=== PATIENT | female | born 1995 | race American Indian/Alaskan Native ===

== ENCOUNTER 2019-03-22 04:07 | Emergency (ER) | payer MEDICAID ==
[2019-03-22 04:12] VITALS: BP 136/75
[2019-03-22 04:51] LABS: Basophils % (Auto) 0.4 % (0.0-1.8); Eosinophils # (Auto) 0.1 K/mm3 (0.0-0.4); Eosinophils % (Auto) 1.1 % (0.0-4.3); Hematocrit 38.2 % (30.3-42.9); Hemoglobin 12.7 gm/dl (10.1-14.3); Lymphocytes # (Auto) 3.6 K/mm3 (1.2-5.4); Lymphocytes % (Auto) 34.5 % (13.4-35.0); Mean Corpuscular HGB Conc 33 % (30-34); Mean Corpuscular Volume 86 fl (79-97); Platelet Count 289 K/mm3 (140-440); Red Blood Count 4.46 M/mm3 (3.65-5.03); Red Cell Distribution Width 15.8 % (13.2-15.2)
--- NOTE | 2019-03-22 08:20 | Ultrasound Report ---
PROCEDURE: US OB <= 14 WEEKS FETUS, US OB TRANSVAGINAL TECHNIQUE: Transvesical and endovaginal pelvic obstetrical sonographic imaging was performed HISTORY: vag bleeding, low hcg beta hCG 229.5, 3, para 1, moderate vaginal bleeding, LMP 02/03 COMPARISONS: None FINDINGS: Images demonstrate uterus to measure 10.6 x 4.6 x 5.6 cm. Endometrial stripe measures 17.5 mm. Within the uterus, there is a 2.5 mm cystic space presumably an empty gestational sac. No pole or yolk sac is identified. Right ovary measures 2.7 x 1.5 x 2.5 cm with a 9 x 10 mm cyst. Left ovary is not visualized. There is no free fluid. IMPRESSION: 2.5 mm cystic space in the uterus without identified pole or yolk sac. There is endometrial hyp erplasia. This finding may be reflective of a 5 week 0 day IUP with estimated due date 11/22/2019. 10 mm right ovarian cystic lesion could represent a corpus luteal cyst of . Findings may represent a very early IUP versus nonviable . Recommend short interval follow-u p beta hCG and ultrasound.. This document is electronically signed by Marisol Retana MD., Mar 22 2019 08:18:08 AM ET
--- NOTE | 2019-03-22 08:24 | Emergency Department Report ---
ED HPI - General Chief complaint: Vaginal Bleeding Stated complaint: 6WKS AND BLEEDING Time Seen by Provider: 03/22/19 07:29 Source: patient Mode of arrival: Ambulatory Limitations: No Limitations - History of Present Illness Initial comments: This is a 23-year-old female nontoxic, well nourished in appearance, no acute signs of distress presents to the ED with c/o of vaginal bleeding x1 day. Patient stated yesterday she noticed some spotting this morning x3 occasions and primarily only when she wipes after the restroom. Patient denies any abdominal or pelvic pain. Patient denies any vaginal discharge or foul odor. Patient denies any nausea, vomiting, chest pain, shortness of breathe, fever, chills, headache, stiff neck, numbness, tingling. Patient denies any urinary symptoms. Patient denies any allergies or PMH. MD Complaint: vaginal bleeding -: days(s) (1) Radiation: none Severity scale (0 -10): 0 Improves with: none Worsens with: none Associated symptoms: vaginal bleeding. denies: nausea/vomiting, vaginal discharge, abdominal pain, dysuria, headache, vision changes, malaise, dysparuenia, rash, seizure, shortness of breath, syncope, weakness Vaginal bleeding: light :: Yes Number of weeks : 6 Pre-dina care: none - Related Data Previous Rx's Medication Instructions Recorded Last Taken Type Nitrofurantoin Pratt/M-Cryst 100 mg PO Q12HR #14 capsule 03/22/19 Unknown Rx [Macrobid CAP] 21/Iron Fu/Folic Acid 1 each PO DAILY #30 tablet 03/22/19 Unknown Rx [ Complete Caplet] Allergies Allergy/AdvReac Type Severity Reaction Status Date / Time No Known Allergies Allergy Unverified 03/22/19 04:20 ED Review of Systems ROS: Stated complaint: 6WKS AND BLEEDING Other details as noted in HPI Constitutional: denies: chills, fever Eyes: denies: eye pain, eye discharge, vision change ENT: denies: ear pain, throat pain Respiratory: denies: cough, shortness of breath, wheezing Cardiovascular: denies: chest pain, palpitations Endocrine: no symptoms reported Gastrointestinal: denies: abdominal pain, nausea, diarrhea Genitourinary: abnormal menses. denies: urgency, dysuria, discharge Musculoskeletal: denies: back pain, joint swelling, arthralgia Skin: denies: rash, lesions Neurological: denies: headache, weakness, paresthesias Psychiatric: denies: anxiety, depression Hematological/Lymphatic: denies: easy bleeding, easy bruising ED Past Medical Hx - Past Medical History Previous Medical History?: No - Surgical History Past Surgical History?: No - Social History Smoking Status: Never Smoker Substance Use Type: None - Medications Home Medications: Home Medications Medication Instructions Recorded Confirmed Last Taken Type Nitrofurantoin Pratt/M-Cryst 100 mg PO Q12HR #14 capsule 03/22/19 Unknown Rx [Macrobid CAP] 21/Iron Fu/Folic Acid 1 each PO DAILY #30 tablet 03/22/19 Unknown Rx [ Complete Caplet] ED Physical Exam - General Limitations: No Limitations General appearance: alert, in no apparent distress - Head Head exam: Present: atraumatic, normocephalic - GI/Abdominal GI/Abdominal exam: Present: soft, normal bowel sounds. Absent: distended, tenderness, guarding, rebound, rigid, diminished bowel sounds - Extremities Exam Extremities exam: Present: normal inspection, full ROM - Back Exam Back exam: Present: normal inspection, full ROM. Absent: tenderness, CVA tenderness (R), CVA tenderness (L), muscle spasm, paraspinal tenderness, vertebral tenderness, rash noted - Neurological Exam Neurological exam: Present: alert, oriented X3 - Psychiatric Psychiatric exam: Present: normal affect, normal mood - Skin Skin exam: Present: warm, dry, intact, normal color. Absent: rash ED Course Vital Signs 03/22/19 03/22/19 04:11 04:20 Temperature 98.3 F 98.3 F Pulse Rate 75 67 Respiratory 18 18 Rate Blood Pressure 136/75 136/75 O2 Sat by Pulse 99 99 Oximetry - Reevaluation(s) Reevaluation #1: 03/22/19 08:22 Patient is speaking in full sentences with no signs of distress noted. ED Medical Decision Making - Lab Data Result diagrams: 03/22/19 04:35 - Medical Decision Making This is a 23-year-old female presents with threatened miscarriage and UTI. Patient is stable and was examined by me. Normal abdominal exam. US OB obtained and dictated by the radiologist. Ua obtained. Quantative serum test obtained. Patient notified of the US report with no questions noted by the patient. Patient was instructed f/u with [facility] in 2 days to follow up with a [facility] or to emergency room for a reevaluation of serum quantative test with possible ultrasound. RH factor positive. Labs within normal limits. Patient was given strict precautions and education on ectopic . At time of discharge, the patient does not seem toxic or ill in appearance. No acute signs of distress noted. Patient agrees to discharge treatment plan of care. No further questions noted by the patient. Critical care attestation.: If time is entered above; I have spent that time in minutes in the direct care of this critically ill patient, excluding procedure time. ED Disposition Clinical Impression: Threatened miscarriage UTI (urinary tract infection) Qualifiers: Urinary tract infection type: acute cystitis Hematuria presence: without hematuria Qualified Code(s): N30.00 - Acute cystitis without hematuria Disposition: TO HOME OR SELFCARE Is pt being admited?: No Does the pt Need Aspirin: No Condition: Stable Instructions: Threatened Miscarriage (ED) Additional Instructions: Follow-up with a [facility] doctor in 2 days for a repeat quantitative test and/or possible ultrasound or if symptoms worsen and continue return to emergency room as soon as possible. Prescriptions: Nitrofurantoin Pratt/M-Cryst [Macrobid CAP] 100 mg PO Q12HR #14 capsule 21/Iron Fu/Folic Acid [ Complete Caplet] 1 each PO DAILY #30 tablet Referrals: [facility] MD [facility] [Primary Care Provider] - 3-5 Days [facility] [Referring] - 3-5 Days RIANNA CHOW MD [Staff Physician] - 3-5 Days [facility] [Provider Group] - 3-5 Days Forms: Work/School Release Form(ED)
[2019-03-22 09:33] LABS: Amorphous Crystals,Urine Few; Bacteria,Urine 1+ /HPF (Negative); Bilirubin,Urine NEG (Negative); Blood,Urine LG (Negative); Color,Urine Yellow (Yellow); Mucus,Urine FEW /HPF; Protein,Urine <15 mg/dL mg/dL (Negative); Urobilinogen,Urine < 2.0 mg/dL (<2.0)
== END 2019-03-22 09:56 | disposition home or self-care (01) ==
LOC: ED 04:07
DX: O23.41 Unspecified infection of urinary tract in pregnancy, first trimester (principal); O20.0 Threatened abortion; Z3A.01 Less than 8 weeks gestation of pregnancy
CPT/HCPCS: 36415; 76801; 76817; 81001; 84702; 85025; 86900; 86901; 99284